=== PATIENT | male | born 1985 | race African-American/Black ===

== ENCOUNTER 2023-01-10 09:43 | Emergency (ER) | payer OTHER ==
[2023-01-10 10:06] VITALS: RESP 18; BMI 28.1
[2023-01-10] MEDS ORDERED: KETOROLAC TROMETHAMINE 30 MG/1 ML VIAL IVPUSH ONE (11:20)
[2023-01-10] MEDS ORDERED: METHOCARBAMOL 500 MG TABLET PO ONE (11:20)
[2023-01-10] MEDS ORDERED: LIDOCAINE 5% TOPICAL PATCH TP ONE (11:20)
[2023-01-10] MEDS ORDERED: ACETAMINOPHEN 500 MG TABLET (FP) PO ONE (11:23)
[2023-01-10] MEDS ORDERED: KETOROLAC TROMETHAMINE 30 MG/1 ML VIAL ONE (11:23)
[2023-01-10] MEDS ORDERED: LIDOCAINE 5% TOPICAL PATCH ONE (11:23)
[2023-01-10] MEDS ORDERED: METHOCARBAMOL 500 MG TABLET ONE (11:23)
[2023-01-10] MEDS ORDERED: ACETAMINOPHEN 500 MG TABLET (FP) ONE (11:30)
[2023-01-10 12:07] LABS: BASO % 0.5 % (0-2.0); EOS % 2.5 % (0-4.5); HEMATOCRIT 37.8 % (35.4-49); HEMOGLOBIN 13.6 GM/dL (11.7-16.9); LYMPH % 52.5 % (8-40); MCH 25.6 pg (25.7-33.7); MEAN CELL VOLUME 71.1 fl (80-96); MEAN PLT VOLUME 9.8 fl (7.5-11.1); NEUT % 32.5 % (42.8-82.8); PLATELET COUNT 285 10^3/uL (134-434); RBC 5.31 M/mm3 (4.00-5.60); RDW 14.7 % (11.9-15.9); WHITE BLOOD COUNT 5.8 K/mm3 (4.0-10.0)
[2023-01-10 12:08] LABS: PH,URINE 5.5 (5.0-8.0); URINE APPEARANCE CLEAR; URINE BILIRUBIN NEGATIVE (NEGATIVE); URINE COLOR YELLOW; URINE GLUCOSE (UA) 3+ (NEGATIVE); URINE KETONE TRACE (NEGATIVE); URINE LEUK ESTERASE NEGATIVE (NEGATIVE); URINE NITRITE NEGATIVE (NEGATIVE); URINE PROTEIN NEGATIVE (NEGATIVE)
[2023-01-10 12:13] LABS: INR 1.1 (0.83-1.09); PROTHROMBIN TIME (PATIENT) 12.7 SEC (9.7-13.0)
[2023-01-10 12:27] LABS: CALCIUM 9.4 mg/dL (8.5-10.1)
[2023-01-10 12:28] LABS: ALBUMIN 3.5 g/dl (3.4-5.0); BLOOD UREA NITROGEN 9.1 mg/dL (7-18)
[2023-01-10 12:31] LABS: CREATININE 0.6 mg/dL (0.55-1.3)
[2023-01-10 12:33] LABS: BILIRUBIN,TOTAL 0.2 mg/dL (0.2-1); TOT PROT 7.6 g/dl (6.4-8.2)
[2023-01-10 13:23] VITALS: BP 110/73; PULSE 97; TEMP 98.2
[2023-01-10] MEDS ORDERED: LIDOCAINE PATCH REMOVAL MC SCH (22:00)
== END 2023-01-10 16:04 | disposition home or self-care (01) ==
LOC: JERFT 09:43
PROC: 3E0233Z Introduction of Anti-inflammatory into Muscle, Percutaneous Approach (ICD-10-PCS; principal; 2023-01-10)
DX: M51.26 Other intervertebral disc displacement, lumbar region (principal); M54.50 Low back pain, unspecified; R81 Glycosuria; R53.1 Weakness; M79.10 Myalgia, unspecified site
CPT/HCPCS: 36415; 72128-TC; 72131-TC; 80053; 81003; 85025; 85610; 85730; 93005; 93010; 99285-25